=== PATIENT | female | born 1955 | race Caucasian/White ===

== ENCOUNTER 2024-11-23 15:28 | Inpatient (IN) | payer MEDICARE, OTHER, SELFPAY ==
[2024-11-23] VITALS (8 sets, daily range): BP systolic 109–144; BP diastolic 61–84; PULSE 95–123; RESP 18; TEMP 36.1–36.8; O2SAT 95–98; BMI 37.8; BMI 34.1
--- NOTE | 2024-11-23 19:21 | CT_ITS ---
PROCEDURE: CHEST WITH CONTRAST REASON FOR EXAM: Right breast wound. TECHNIQUE: Chest CT with intravenous contrast. COMPARISON: None. FINDINGS: Hardware: None. Lymph nodes: No mediastinal hilar or axillary lymphadenopathy. Heart and Vasculature: Normal heart size. No pericardial effusion. Thoracic aorta and pulmonary arteries are unremarkable. Lungs and Airways: The lungs are normally expanded and clear. Pleura: No pleural effusion. No pneumothorax. Upper Abdomen: Hypodense liver suggestive of steatosis. Right adrenal 9 mm indeterminate nodule. Bones: Bone windows are unremarkable. Right breast 13.6 x 16.5 x 17.[address]/Chest WITH Contrast IMPRESSION: Large right breast lesion which may represent a mass or hematoma in the setting of trauma. Correlate clinically. Correlate with breast imaging and clinical history. Right adrenal indeterminate 9 mm nodule. No follow-up recommended based on siz e. One or more dose reduction techniques were used (e.g., Automated exposure contr ol, adjustment of the mA and/or kV according to patient size, use of iterative reconstruction technique). Reading Location: [id number]
[2024-11-23 19:37] LABS: Absolute Lymphocyte Count 2.11 X10^3/uL (0.83-4.51); Absolute Neutrophil Count 65.4 X10^3/uL (2.0-7.7); Basophil# 0.32 X10^3/uL; Basophil% 0.4 % (0-1); Eosinophil# 0.12 X10^3/uL; Eosinophils% 0.2 % (0-5); Hemoglobin 7.7 g/dL (12.0-15.0); Lymphocyte # 2.11 X10^3/ul (0.83-4.51); Lymphocyte % 2.9 % (19-41); Mean Corp Hgb Conc 29.6 g/dL (32-36); Mean Corpuscular Hgb 26.7 pg (27.0-32.0); Mean Corpuscular Volume 90.3 fL (81-99); Mean Platelet Vol. 10.9 fl (6.2-12.0); Monocyte# 1.84 X10^3/uL; Monocyte% 2.5 % (0-10); NRBC Flagged by Analyzer 0.1 % (0-5); Neutrophil # 65.36 X10^3/uL (2.7-7.7); Neutrophil % 90.6 % (47-70); POSITIVE COUNT YES; POSITIVE DIFFERENTIAL YES; Platelet Count 436 K/mm3 (150-450); RBC Distribution Width CV 16.2 % (11.6-14.6); Red Blood Count 2.88 M/mm3 (4.2-5.4)
[2024-11-23 19:41] LABS: ALB/GLOB Ratio 0.4 RATIO (0.9-2.4); AST(SGOT) 19 U/L (15-37); Alanine Aminotransfer ALT/SGPT 12 U/L (13-56); Albumin, Serum 2.3 g/dL (3.2-5.0); Alkaline Phosphatase 265 U/L (45-117); Anion Gap 9 (5-15); BUN 17 mg/dL (7-18); BUN/Creat Ratio 17.5 RATIO (10-20); Calcium,Total 9.7 mg/dL (8.5-10.1); Chloride 104 mmol/L (98-107); Creatinine, Serum 0.97 mg/dL (0.55-1.02); EST Glomerular Filtration Rate 60 mL/min (>60); Est Glom Filt Rate - Afr Amer 73 mL/min (>60); Estimated Creatinine Clearance 75.82 ml/min; Globulin 5.8 g/dL (2.2-4.2); Glucose 101 mg/dL (74-106); Potassium 4.7 mmol/L (3.5-5.1); Protein, Total 8.1 g/dL (6.4-8.2); Sodium Level 136 mmol/L (136-145)
[2024-11-23 20:09] LABS: Differential Indicated SCAN CRITERIA MET; White Blood Count 72.2 K/mm3 (4.4-11.0)
[2024-11-23 20:10] LABS: Differential Comment SCANNED; Hypochromasia 2+; Platelet Estimate ADEQUATE (ADEQ)
--- NOTE | 2024-11-23 21:05 | EX.ED.DYSGE1 ---
HPI History of Present Illness Chief Complaint: Wound Narrative Narrative: 69-year-old female past medical history of hearing impairment, but can read lips, presents with right breast pain, swelling, and bleeding that she states she has had for 4 weeks. Her states it may be longer than that. She endorses a generalized weakness but states that over the last 4 weeks, she has what she calls a third breast. Her right breast is firm and she has noticed bleeding coming from it. She tries to apply Band-Aids, but has continued bleeding intermittently. She thinks that she is anemic and wanted to go to urgent care to get iron pills. She has not been to a primary care provider in years. She presents mainly because of the bleeding from her right breast. PFSH PFSH Medical History no medical history Allergy/AdvReac Type Severity Reaction Status Date / Time Penicillins (PCN) Allergy Mild Rash Verified 11/23/24 15:37 Family History Sister Breast cancer Surgical History no surgical history Social History Smoking Status: Never smoker ROS ROS ED ROS Narrative No fevers or chills, no nausea or vomiting, chief complaint is bleeding from right breast and firmness of right breast for 4 weeks. EXAM Physical Exam Narrative Exam Narrative: Afebrile. Vital signs noted. Nontoxic-appearing. Cardiovascular examination reveals initial tachycardia with a regular rhythm. Lungs clear to auscultation bilaterally. Abdomen soft and nontender with normoactive bowel sounds. Neurological examination nonfocal and not lateralizing. Chaperoned examination of the right breast shows diffuse firmness with necrotic tissue diffusely with areas of of epidermal skin sloughing, which creates bleeding. No noted purulent drainage. Const Vital Signs: 11/23/24 15:29 11/23/24 18:30 11/23/24 18:31 Temperature 96.9 F L 98.3 F Temperature Source Temporal Temporal Pulse Rate 123 H 109 H Respiratory Rate 18 18 Blood Pressure 109/70 144/61 H 144/61 H Blood Pressure Mean 83 88 88 Pulse Ox 96 95 Oxygen Delivery Method Room Air Room Air 11/23/24 20:00 11/23/24 21:00 11/23/24 22:00 Temperature 97.6 F L 97.6 F L 97.6 F L Temperature Source Oral Oral Oral Pulse Rate 107 H 99 102 H Respiratory Rate 18 18 18 Blood Pressure 142/84 H 133/77 H 141/67 H Blood Pressure Mean 103 95 91 Pulse Ox 95 95 95 Oxygen Delivery Method Room Air Room Air Room Air MDM MDM MDM Narrative Medical decision making narrative: Initially without of his utilization differential diagnosis did include breast hematoma versus breast mass versus cellulitis versus broken blood vessel. I have very high suspicion for inflammatory breast carcinoma. The RN and I had a lengthy talk with both the patient and her . With very high suspicion of breast carcinoma/breast mass, I do feel that she would benefit from transfer to a tertiary care center. She is agreeable to go to [facility]. I discussed the patient with the transfer line and we will obtain basic laboratory work. Initially, did not want imaging, but and a call back as there are currently no beds available and she will most likely need to be placed on a waiting list, CT of the chest will be obtained with IV contrast. I reviewed her laboratory work and she has a leukocytosis of 72.2 with hemoglobin 7.7. I do not feel she requires blood transfusion. Platelet count normal at 436. Her CMP is grossly unremarkable except for alk phos 265 and ALT 12 which I think is nonspecific. I reviewed the radiology report of the CT of the chest which shows a large right sided breast mass versus hematoma. I do favor mass given her elevated white count. I discussed the patient with the [facility] Transfer line, and currently there are no beds available. She will be placed on the waiting list after discussion with their hospitalist. She has been accepted by Dr. Adams at [facility], and placed on the waiting list. Additionally, they requested that COVID, influenza, and RSV swab be obtained prior to transfer. Afterwards, patient will be discussed with the hospitalist here for admission. Patient is in stable condition. History & Record Review Discussion w/independent historian: Patient and Family Lab Data Attestation: I reviewed the patient's lab results. Labs: Laboratory Results - last 24 hr 11/23/24 19:10 WBC 72.2 H* RBC 2.88 L Hgb 7.7 L Hct 26.0 L MCV 90.3 MCH 26.7 L MCHC 29.6 L RDW Std Deviation 53.0 H RDW Coeff of Jessica 16.2 H Plt Count 436 MPV 10.9 Immature Gran % (Auto) 3.400 H Neut % (Auto) 90.6 H Lymph % (Auto) 2.9 L [place] % (Auto) 2.5 Eos % (Auto) 0.2 Baso % (Auto) 0.4 Absolute Neuts (auto) 65.4 H Absolute Lymphs (auto) 2.11 Nucleated RBC % 0.1 Differential Comment SCANNED Diff Path Review May foll Platelet Estimate ADEQUATE Hypochromasia 2+ Sodium 136 Potassium 4.7 Chloride 104 Carbon Dioxide 23.0 Anion Gap 9 BUN 17 Creatinine 0.97 Estim Creat Clear Calc 75.82 Est GFR (MDRD) Af Amer 73 Est GFR (MDRD) Non-Af 60 BUN/Creatinine Ratio 17.5 Glucose 101 Calcium 9.7 Total Bilirubin 0.30 AST 19 ALT 12 L Alkaline Phosphatase 265 H Total Protein 8.1 Albumin 2.3 L Globulin 5.8 H Albumin/Globulin Ratio 0.4 L Radiography Diagnostic Testing: Clinical Impression(s) from Imaging Studies Chest CT 11/23/24 19:21 IMPRESSION: Large right breast lesion which may represent a mass or hematoma in the setting of trauma. Correlate clinically. Correlate with breast imaging and clinical history. Right adrenal indeterminate 9 mm nodule. No follow-up recommended based on size. One or more dose reduction techniques were used (e.g., Automated exposure control, adjustment of the mA and/or kV according to patient size, use of iterative reconstruction technique). 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
--- NOTE | 2024-11-23 21:50 | CM.ED ---
Social Work SW met with patient and her . Patient presented to ED due to mass on her breast that has been bleeding. Patient stated that she has not been to a doctor since she had her daughter 50 years ago. She stated she has not had good experiences, that because of her hearing deficit she feels that people do not talk directly with her and she feels that she is not told all the necessary information. Patient states she is fearful of being admitted but understands it is the right decision. Patient was tearful during parts of conversation. Emotional support provided. Lisa Burgess, TRANSPORTATION CONSULTANT, FILTERS ASSEMBLER
--- NOTE | 2024-11-23 22:59 | PCM.HP.STD ---
[facility] - General General Date of Admission: 11/23/24 Date of Service: 11/23/24 Chief Complaint: R breast mass, bleeding, fatigue and malaise. 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 She does admit to history of at least 2 to 3 weeks of night sweats, decreased appetite and occasional nausea and emesis concurrently. She denies any specific fevers or chills. 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 ED physician discussed case with patient and her with high suspicion for possibly inflammatory breast carcinoma with recommended tertiary transfer at that time amenable to [facility] Transfer. ED physician arrange transfer to [facility] Excepted by Dr. Adams. Unfortunately transfer line noted currently there is a waiting list therefore ED requested admission temporarily to [facility] pending transfer. [facility] Medical History (Updated 11/24/24 @ 01:[address] Mirella Quevedo MD) CKD (chronic kidney disease) Obesity Congenital hearing disorder Medical History no medical history Home Medications ?Medication ?Instructions ?Recorded ?Last Taken ?Type NK 11/23/24 Unknown History Allergy/AdvReac Type Severity Reaction Status Date / Time Penicillins (PCN) Allergy Mild Rash Verified 11/23/24 15:37 Family History (Updated 11/24/24 @ 01:[address] Mirella Quevedo MD) Sister Breast cancer Mother Heart disease Hypertension Father Congenital hearing disorder Surgical History (Updated 11/24/24 @ 01:[address] Mirella Quevedo MD) No history of previous surgery Surgical History no surgical history Social History (Updated 11/24/24 @ 01:[address] Mirella Quevedo MD) household members: spouse Smoking Status: Never smoker alcohol intake: current alcohol intake frequency: holidays/special occasions only Alcohol type: beer substance use type: does not use ROS ROS Narrative Admission Review of Systems: CONSTITUTIONAL: No weight loss, fever, chills, + weakness or fatigue, night sweats, decreased appetite. HEENT: Eyes: No visual loss, blurred vision, double vision or yellow sclerae. Ears, Nose, Throat: No hearing loss, sneezing, congestion, runny nose or sore throat. SKIN: No rash or itching except significant + right breast enlargement, sloughing, eschar, bleeding regions as well as occasional staged ecchymoses. CARDIOVASCULAR: No chest pain, chest pressure or chest discomfort, palpitations, edema, orthopnea, syncopal events. RESPIRATORY: + Cough primarily when she is laying down. No shortness of breath, wheezing, hemoptysis. GASTROINTESTINAL: + Decreased appetite, occasional nausea and emesis. No diarrhea, abdominal pain, melena, BRBPR. GENITOURINARY: No dysuria, frequency, urgency or retention. NEUROLOGICAL: No headache, dizziness, syncope, paralysis, ataxia, numbness or tingling in the extremities, focal weakness, change in bowel or bladder control, seizure. MUSCULOSKELETAL: + muscle, back pain, joint pain or stiffness. HEMATOLOGIC: + Current evidence of anemia, easy bleeding is noted. LYMPHATICS: No enlarged nodes. No history of splenectomy. PSYCHIATRIC: No history of depression or anxiety. ENDOCRINOLOGIC: + History of night sweats. No cold or heat intolerance. No polyuria or polydipsia. ALLERGIES: No history of asthma, hives, eczema or rhinitis. Vital Signs Vital Signs Vital Signs: 11/23/24 15:29 11/23/24 18:30 11/23/24 18:31 Temperature 96.9 F L 98.3 F Temperature Source Temporal Temporal Pulse Rate 123 H 109 H Respiratory Rate 18 18 Blood Pressure 109/70 144/61 H 144/61 H Blood Pressure Mean 83 88 88 Pulse Ox 96 95 Oxygen Delivery Method Room Air Room Air 11/23/24 20:00 11/23/24 21:00 11/23/24 22:00 Temperature 97.6 F L 97.6 F L 97.6 F L Temperature Source Oral Oral Oral Pulse Rate 107 H 99 102 H Respiratory Rate 18 18 18 Blood Pressure 142/84 H 133/77 H 141/67 H Blood Pressure Mean 103 95 91 Pulse Ox 95 95 95 Oxygen Delivery Method Room Air Room Air Room Air Weight Weight: 264 lb Body Mass Index (BMI) 37.8 Physical Exam Narrative Physical Examination: General: Awake, alert, oriented x 3 and cooperative, seated upright in the ED bed, no acute distress, despite discussions does not seem to appreciate this severity of her right breast appearance and high suspicion for cancer. Skin: Normal color, normal turgor, no icterus, no cyanosis except noted right breast significant diffuse elevated firm region with eschars and necrotic tissue with skin sloughing and occasional seeping bleeding regions. HEENT: AT/NC, EOMI, PERRLA, mildly dry MM, no carotid bruits or JVD noted. Lungs: Diminished, greater bases, appropriate effort, no rales, ronchi or wheezing. Heart: Mildly tachycardic with regular rhythm; no gallop, rub audible. Abdomen: Soft, obese, NTTP, ND, normal BS, no appreciated HSM. Extremities: No cyanosis, no clubbing, bilateral pedal to ankle not markedly pitting edema. Neurological: Patient awake, alert, oriented as noted, cognitive function intact; pupils equally reactive to light and accommodation, cranial nerves II-XII grossly normal, moving all 4 extremities, no focal deficits, strength moderately globally decreased. Psychiatric: Affect appears normal despite discussions, no acute evidence of depressive or anxiety feelings, reaction and appearance seems more to just believe the potential of cancer. Results Lab / Micro Data 11/23/24 19:10 11/23/24 19:10 Labs: Laboratory Results - last 24 hr 11/23/24 19:10: WBC 72.2 H*, RBC 2.88 L, Hgb 7.7 L, Hct 26.0 L, MCV 90.3, MCH 26.7 L, MCHC 29.6 L, RDW Std Deviation 53.0 H, RDW Coeff of Jessica 16.2 H, Plt Count 436, MPV 10.9, Immature Gran % (Auto) 3.400 H, Neut % (Auto) 90.6 H, Lymph % (Auto) 2.9 L, [place] % (Auto) 2.5, Eos % (Auto) 0.2, Baso % (Auto) 0.4, Absolute Neuts (auto) 65.4 H, Absolute Lymphs (auto) 2.11, Nucleated RBC % 0.1, Differential Comment SCANNED, Diff Path Review May foll, Platelet Estimate ADEQUATE, Hypochromasia 2+, Sodium 136, Potassium 4.7, Chloride 104, Carbon Dioxide 23.0, Anion Gap 9, BUN 17, Creatinine 0.97, Estim Creat Clear Calc 75.82, Est GFR (MDRD) Af Amer 73, Est GFR (MDRD) Non-Af 60, BUN/Creatinine Ratio 17.5, Glucose 101, Calcium 9.7, Total Bilirubin 0.30, AST 19, ALT 12 L, Alkaline Phosphatase 265 H, Total Protein 8.1, Albumin 2.3 L, Globulin 5.8 H, Albumin/Globulin Ratio 0.4 L Micro: Microbiology 11/23/24 22:13 Mucosa - Nose SARS-CoV-2, Influenza & RSV (PCR) - Final Imaging Radiology Impression Chest CT 11/23/24 19:21 IMPRESSION: Large right breast lesion which may represent a mass or hematoma in the setting of trauma. Correlate clinically. Correlate with breast imaging and clinical history. Right adrenal indeterminate 9 mm nodule. No follow-up recommended based on size. One or more dose reduction techniques were used (e.g., Automated exposure control, adjustment of the mA and/or kV according to patient size, use of iterative reconstruction technique). 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 #1. Right Breast Mass with concern for possible inflammatory breast carcinoma with associated acute blood loss anemia with bleeding from the breast with sloughing skin/eschar and leukocytosis: Per ED request given unfortunately no available beds at tertiary facility although patient has been accepted will temporarily bring into [facility] to more closely follow, will maintain on MedSurg, monitor for any recurrent bleeding and low threshold to placed on compression dressing if necessary, wound RN will be consulted, if necessary may also consider involving surgery as well as radiation oncology as likely this will be necessary to assist with bleeding but at this point the plan is for her to be transferred thus will hold on immediately involving the services, will trend CBC, procalcitonin requested given leukocytosis although patient has had no recent fevers or chills and certainly could be elevated in the setting of cancer concurrently, to be cautious will defer chemoprophylaxis. If the procalcitonin is elevated will immediately add broad-spectrum antibiotic therapy in case of potentially an infected hematoma although more suspicious again for inflammatory breast carcinoma. #2. Normocytic anemia felt secondary as noted #1 to acute blood loss anemia from the right breast: Admission CBC with hemoglobin 7.7, MCV 90.3, will obtain iron panel, ferritin and trend CBC #3. Elevated BP without hypertensive diagnosis: Patient upon evaluation with elevated BP above goal with no previous history, will continue to monitor, as needed IV hydralazine. #4. Obesity: Weight loss and lifestyle changes encouraged. #5. Possible CKD stage II versus III, unclear subtype per GFR trending: Patient denies any medical history however with her labs her BUN/creatinine 17/0.97 with a GFR of 16 with no comparison labs thus uncertain if maybe patient is stage II versus stage III, will repeat CMP in the a.m. to further elucidate. #6. DVT prophylaxis: SCDs. #7. CODE status: Patient HCPOA and living will not in place but she notes her who is present would be her medical decision maker if necessary. Discussed CODE status at length including difference between FULL code, DNR-CCA and DNR-CC status. Following discussions about the differences in these status, requested DNR CCA with intubation allowance following several examples and we discussions. Advanced Care Planning Face to Face Time: 16 minutes. Charges/Coding Visit Charges Inpatient E&M: 07563 Init Hosp L3 Procedures Hospitalists Procedures: 81317 Advncd Care Plan 30 Min
[2024-11-23 23:35] LABS: Magnesium 2.3 mg/dL (1.6-2.6); Phosphorus 4.5 mg/dL (2.5-4.9)
[2024-11-24] VITALS (7 sets, daily range): BP systolic 114–142; BP diastolic 61–70; PULSE 81–102; RESP 17–19; TEMP 36.6–36.8; O2SAT 93–97; BMI 34.0
[2024-11-24 00:18] LABS: Ferritin 941 ng/mL (8-252); Iron 17 ug/dL (50-170); Iron Binding Capacity,Total 135 ug/dL (250-450); PERCENT IRON SATURATION 12.6 % (15.0-55.0)
[2024-11-24] MEDS: 0.9% Normal Saline (1000mL) 1,000 ML 999 ML IV (01:08)
[2024-11-24 01:09] LABS: Procalcitonin 1.07 ng/mL (0.00-0.09)
[2024-11-24] MEDS: 0.9% Saline Lock 10 ML Syringe IV (01:09)
[2024-11-24] MEDS: Acetaminophen 325 MG Tablet 650 MG PO (01:10)
[2024-11-24] MEDS: oxyCODONE 5 MG Tablet PO ×3 (01:11→16:11)
[2024-11-24] MEDS: 0.9% Normal Saline (1000mL) 1,000 ML 100 ML IV (02:31)
--- NOTE | 2024-11-24 02:58 | ED.RN ---
Addendum entered by Jossy Parrish 11/24/24 03:02: Pictures of pts wound added to chart per request of Dr. Sunshine. Consent signed by pt and MADDISON Mondragon. Original Note:
[2024-11-24] MEDS: levoFLOXacin IV 750 MG/150 ML BAG 100 MG IV (04:16)
[2024-11-24 04:48] LABS: Absolute Lymphocyte Count 1.93 X10^3/uL (0.83-4.51); Absolute Neutrophil Count 48.3 X10^3/uL (2.0-7.7); Basophil# 0.26 X10^3/uL; Basophil% 0.5 % (0-1); Eosinophils% 0.6 % (0-5); Hematocrit 23.9 % (37-47); Hemoglobin 7.2 g/dL (12.0-15.0); Lymphocyte # 1.93 X10^3/ul (0.83-4.51); Lymphocyte % 3.6 % (19-41); Mean Corp Hgb Conc 30.1 g/dL (32-36); Mean Corpuscular Hgb 27.1 pg (27.0-32.0); Mean Corpuscular Volume 89.8 fL (81-99); Mean Platelet Vol. 10.1 fl (6.2-12.0); Monocyte# 1.48 X10^3/uL; Monocyte% 2.7 % (0-10); NRBC Flagged by Analyzer 0.1 % (0-5); Neutrophil # 48.28 X10^3/uL (2.7-7.7); Neutrophil % 88.8 % (47-70); POSITIVE COUNT YES; POSITIVE DIFFERENTIAL YES; Platelet Count 420 K/mm3 (150-450); RBC Distribution Width CV 16.1 % (11.6-14.6); RBC Distribution Width SD 52.8 fl (35.1-43.9); Red Blood Count 2.66 M/mm3 (4.2-5.4)
[2024-11-24 04:57] LABS: White Blood Count 54.3 K/mm3 (4.4-11.0)
[2024-11-24 04:58] LABS: Differential Indicated SCAN CRITERIA MET
[2024-11-24 05:13] LABS: ALB/GLOB Ratio 0.4 RATIO (0.9-2.4); AST(SGOT) 13 U/L (15-37); Alanine Aminotransfer ALT/SGPT 10 U/L (13-56); Alkaline Phosphatase 212 U/L (45-117); Anion Gap 6 (5-15); BUN 15 mg/dL (7-18); Calcium,Total 9.1 mg/dL (8.5-10.1); Chloride 109 mmol/L (98-107); Creatinine, Serum 0.79 mg/dL (0.55-1.02); EST Glomerular Filtration Rate 76 mL/min (>60); Est Glom Filt Rate - Afr Amer 93 mL/min (>60); Estimated Creatinine Clearance 87.06 ml/min; Globulin 4.9 g/dL (2.2-4.2); Glucose 100 mg/dL (74-106); Potassium 4.3 mmol/L (3.5-5.1); Protein, Total 6.9 g/dL (6.4-8.2); Sodium Level 140 mmol/L (136-145)
[2024-11-24] MEDS: Vancomycin HCl 2,000 MG in 0.9% Normal Saline (500mL Bag) 500 ML 250 MG IV (06:12)
--- NOTE | 2024-11-24 06:18 | PCM.RX.CS ---
Consult Antibiotic Management Pharmacy has been consulted to manage selected antibiotic: Vancomycin Type of Intervention Type of Consult: New start Labs Labs: Sodium 140 mmol/L (136-145) 11/24/24 04:30 Potassium 4.3 mmol/L (3.5-5.1) 11/24/24 04:30 Chloride 109 mmol/L (98-107) H 11/24/24 04:30 Carbon Dioxide 25.0 mmol/L (21.0-32.0) 11/24/24 04:30 Anion Gap 6 (5-15) 11/24/24 04:30 BUN 15 mg/dL (7-18) 11/24/24 04:30 Creatinine 0.79 mg/dL (0.55-1.02) 11/24/24 04:30 Est GFR (MDRD) Af Amer 93 mL/min (>60) 11/24/24 04:30 Est GFR (MDRD) Non-Af 76 mL/min (>60) 11/24/24 04:30 BUN/Creatinine Ratio 19.0 RATIO (10-20) 11/24/24 04:30 Glucose 100 mg/dL (74-106) 11/24/24 04:30 Microbiology Microbiology: Microbiology 11/23/24 22:13 Mucosa - Nose SARS-CoV-2, Influenza & RSV (PCR) - Final Dosing Weight Weight used for dosin.95 kg Estimated Creatinine Clearance Estimated Creatinine Clearance: 75.82 Goal Trough Goal Trough: 15-20 mcg/mL Pharmacy Plan for Drug Dosing Pharmacy Plan for Drug Dosing: Pharmacy Service will continue to monitor and adjust dosing as required. 2000MG LOADING DOSE GIVEN 11/24 @ 0612. START 1500MG Q12H AND DRAW TROUGH PRIOR TO 4TH DOSE Follow-Up Labs Follow-Up Labs: Trough: Vancomycin Date/Time Labs Ordered Labs to be done on [date and time ordered]: 11/25 @ 8143
[2024-11-24 07:29] LABS: Anisocytosis 1+
--- NOTE | 2024-11-24 09:08 | WOUNDNOTE ---
wound photo: right breast
--- NOTE | 2024-11-24 09:09 | WOUNDNOTE ---
wound photo: right breast
[2024-11-24 14:42] LABS: Pathologist Review Reviewed
--- NOTE | 2024-11-24 16:26 | PN.HOSP_ITS ---
Reason for Visit Reason for Visit: Diagnoses Unspecified lump in unspecified breast (11/23/24) Subjective Subjective Saw patient at bedside this morning. Patient is very hard of hearing, used geriatric physician ronal on phone for assistance with conversation. She was mildly fatigued appearing but otherwise sitting up comfortably in bed and in no acute distress. She denied any fevers or chills. No other new concerns morning. Objective Data Objective Data Vital Signs: Vital Signs Temp Pulse Resp BP Pulse Ox O2 Del Method 97.9 F 93 19 H 141/62 H 96 Room Air 11/24/24 15:56 11/24/24 15:56 11/24/24 15:56 11/24/24 15:56 11/24/24 15:56 11/24/24 15:56 Oxygen Delivery Method Room Air Weight: 107.955 kg Body Mass Index (BMI) 34.0 Intake & Output: Intake and Output for Last 24 Hours 11/22/24 11/23/24 11/24/24 23:59 23:59 23:59 Intake Total 1865 / 1865 Balance 1865 / 1865 Lab / Micro Data 11/24/24 04:30 11/24/24 04:30 Labs: Laboratory Results - last 24 hr 11/23/24 19:10: WBC 72.2 H*, RBC 2.88 L, Hgb 7.7 L, Hct 26.0 L, MCV 90.3, MCH 26.7 L, MCHC 29.6 L, RDW Std Deviation 53.0 H, RDW Coeff of Jessica 16.2 H, Plt Count 436, MPV 10.9, Immature Gran % (Auto) 3.400 H, Neut % (Auto) 90.6 H, Lymph % (Auto) 2.9 L, [place] % (Auto) 2.5, Eos % (Auto) 0.2, Baso % (Auto) 0.4, Absolute Neuts (auto) 65.4 H, Absolute Lymphs (auto) 2.11, Nucleated RBC % 0.1, Differential Comment SCANNED, Diff Path Review Reviewed, Platelet Estimate ADEQUATE, Hypochromasia 2+, Sodium 136, Potassium 4.7, Chloride 104, Carbon Dioxide 23.0, Anion Gap 9, BUN 17, Creatinine 0.97, Estim Creat Clear Calc 75.82, Est GFR (MDRD) Af Amer 73, Est GFR (MDRD) Non-Af 60, BUN/Creatinine Ratio 17.5, Glucose 101, Calcium 9.7, Phosphorus 4.5, Magnesium 2.3, Iron 17 L, TIBC 135 L, Iron Saturation 12.6 L, Ferritin 941 H, Total Bilirubin 0.30, AST 19, ALT 12 L, Alkaline Phosphatase 265 H, Total Protein 8.1, Albumin 2.3 L, Globulin 5.8 H, Albumin/Globulin Ratio 0.4 L 11/24/24 00:28: Procalcitonin 1.07 H 11/24/24 04:30: WBC 54.3 H*, RBC 2.66 L, Hgb 7.2 L, Hct 23.9 L, MCV 89.8, MCH 27.1, MCHC 30.1 L, RDW Std Deviation 52.8 H, RDW Coeff of Jessica 16.1 H, Plt Count 420, MPV 10.1, Immature Gran % (Auto) 3.800 H, Neut % (Auto) 88.8 H, Lymph % (Auto) 3.6 L, [place] % (Auto) 2.7, Eos % (Auto) 0.6, Baso % (Auto) 0.5, Absolute Neuts (auto) 48.3 H, Absolute Lymphs (auto) 1.93, Nucleated RBC % 0.1, Diff Path Review May foll, Anisocytosis 1+, Sodium 140, Potassium 4.3, Chloride 109 H, Carbon Dioxide 25.0, Anion Gap 6, BUN 15, Creatinine 0.79, Estim Creat Clear Calc 87.06, Est GFR (MDRD) Af Amer 93, Est GFR (MDRD) Non-Af 76, BUN/Creatinine Ratio 19.0, Glucose 100, Calcium 9.1, Total Bilirubin 0.30, AST 13 L, ALT 10 L, Alkaline Phosphatase 212 H, Total Protein 6.9, Albumin 2.0 L, Globulin 4.9 H, A lbumin/Globulin Ratio 0.4 L Micro: Microbiology 11/23/24 22:13 Mucosa - Nose SARS-CoV-2, Influenza & RSV (PCR) - Final Radiography Diagnostic Testing: Radiology Impression Chest CT 11/23/24 19:21 IMPRESSION: Large right breast lesion which may represent a mass or hematoma in the setting of trauma. Correlate clinically. Correlate with breast imaging and clinical history. Right adrenal indeterminate 9 mm nodule. No follow-up recommended based on size. One or more dose reduction techniques were used (e.g., Automated exposure control, adjustment of the mA and/or kV according to patient size, use of iterative reconstruction technique). Reading Location: [facility] Physical Exam Const alert, oriented x3 and no apparent distress Constitutional Narrative: Elderly female, very hard of hearing, class I obesity, mildly fatigued appearing, otherwise sitting back comfortably in bed, in no acute distress. General Appearance: cooperative and comfortable HEENT normocephalic, head/scalp atraumatic, nasal mucous membranes and turbinates normal and moist oral mucous membranes Eyes PERRL, EOMs intact bilaterally and conjunctivae normal Neck full ROM Chest Chest Narrative: Large right firm breast mass with areas of eschar and necrotic tissue noted. Resp normal respiratory effort, normal air movement, no use of accessory muscles and clear to auscultation bilaterally Cardio regular rate, regular rhythm, no murmurs and peripheral pulses 2+ throughout GI normal to inspection, nondistended, normoactive bowel sounds, soft to palpation, non-tender and non-distended Back/Spine normal ROM Extremity normal to inspection, full ROM and no pedal edema Skin no rashes or lesions noted Psych mental status grossly normal Assessment & Plan Assessment/Plan (1) Large mass of breast: (2) Leukocytosis: (3) Anemia: PLAN: Plan Patient is a 69-year-old female who presented [facility] ED on 11/23/2024 with right breast mass with pain. 1. Large right breast mass with concern for inflammatory breast carcinoma, concern for cellulitis of breast mass ? CT chest on admit showed large right breast lesion that is 13.6 x 16.5 x 17.9 cm concerning for mass possibly due to inflammatory breast carcinoma. Severely elevated WBC count of 72.2 with neutrophil predominance noted. Procalcitonin 1.07. Treating with IV Levaquin for now. Patient accepted for transfer to [facility], awaiting bed placement. 2. Acute on chronic anemia ? Hemoglobin 7.7 on admit, baseline unclear but patient does report history of anemia. Iron studies consistent with anemia of chronic disease. Likely some degree of blood loss anemia secondary to intermittent bleeding from breast mass. Hemoglobin 7.2 on hospital day 2. Continue to monitor CBC daily and transfuse for hemoglobin less than 7. 3. Class I obesity ? BMI 34 on admit. Complicates hospital course, care and prognosis. 4. Congenital hearing impairment ? Patient is able to read lips and also uses phone ronal to help with translation during encounters. DVT prophylaxis: SCDs CODE STATUS: DNR CCA, okay to intubate Expected disposition: Transfer to [facility] Total clinical time spent by myself addressing the patient's medical issues, reviewing all the data, and collaborating with patient's care team: 35 minutes. Charges/Coding Visit Charges Inpatient E&M: 63373 Subs Hosp L2
[2024-11-24] MEDS: 0.9% Normal Saline (100mL Bag) 100 ML 15 ML IV (18:27)
[2024-11-24] MEDS: Vancomycin HCl 1,500 MG in 0.9% Normal Saline (500mL Bag) 500 ML 250 MG IV (18:27)
[2024-11-25] VITALS (9 sets, daily range): BP systolic 122–151; BP diastolic 54–79; PULSE 91–109; RESP 18–20; TEMP 36.4–36.8; O2SAT 92–96; BMI 34.4
[2024-11-25] MEDS: 0.9% Normal Saline (100mL Bag) 100 ML 15 ML IV (04:24)
[2024-11-25] MEDS: Vancomycin HCl 1,500 MG in 0.9% Normal Saline (500mL Bag) 500 ML 200 MG IV (05:28)
[2024-11-25 07:04] LABS: Hematocrit 23.1 % (37-47); Hemoglobin 6.7 g/dL (12.0-15.0); Mean Corpuscular Hgb 26.4 pg (27.0-32.0); Mean Corpuscular Volume 90.9 fL (81-99); Mean Platelet Vol. 9.8 fl (6.2-12.0); POSITIVE COUNT YES; Platelet Count 403 K/mm3 (150-450); RBC Distribution Width CV 16.3 % (11.6-14.6); RBC Distribution Width SD 53.6 fl (35.1-43.9); Red Blood Count 2.54 M/mm3 (4.2-5.4)
[2024-11-25 07:17] LABS: Scan Indicated on CBC? Y/N YES- FLAGS NOTED; White Blood Count 61.3 K/mm3 (4.4-11.0)
--- NOTE | 2024-11-25 09:26 | NURSING ---
This RN talked to pt about getting a blood transfusion as ordered by her Hospitalist Doctor today. Pt educated on reason and importance and still wants to wait and talk with the doctor. Isn't there something else they can give me. I want to wait and talk with the doctor before I decide. Dr. Orosco texted and aware.
[2024-11-25] MEDS: levoFLOXacin IV 750 MG/150 ML BAG 100 MG IV (10:30)
[2024-11-25] MEDS: Senna/Docusate Sodium 1 Tablet PO (10:37)
--- NOTE | 2024-11-25 11:27 | WOUNDNOTE ---
Dressing was changed by MADDISON Mayberry this am.
[2024-11-25 13:44] LABS: Pathologist Review Reviewed
--- NOTE | 2024-11-25 14:47 | PN.HOSP_ITS ---
Reason for Visit Reason for Visit: Diagnoses Anemia, unspecified (11/23/24) Elevated white blood cell count, unspecified (11/23/24) Unspecified lump in unspecified breast (11/23/24) Subjective Subjective Saw patient at bedside this morning. Patient appeared similar to yesterday. Remained mildly fatigued and was stating that she continued to feel very tired and weak. Nursing staff had noted that patient was hesitant to have blood transfusion done. On discussion with her, she had some concern about a reaction to a blood transfusion but after further discussion she was amenable to receiving a unit of blood today. No other new concerns at this time. Objective Data Objective Data Vital Signs: Vital Signs Temp Pulse Resp BP Pulse Ox O2 Del Method 97.6 F L 100 18 151/73 H 95 Room Air 11/25/24 08:00 11/25/24 08:00 11/25/24 08:00 11/25/24 08:00 11/25/24 08:24 11/25/24 11:00 Oxygen Delivery Method Room Air Weight: 109 kg Body Mass Index (BMI) 34.4 Intake & Output: Intake and Output for Last 24 Hours 11/23/24 11/24/24 11/25/24 23:59 23:59 23:59 Intake Total 3460.00 / 3460.00 796 / 796 Balance 3460.00 / 3460.00 796 / 796 Lab / Micro Data 11/25/24 06:42 11/24/24 04:30 Labs: Laboratory Results - last 24 hr 11/24/24 04:30: Diff Path Review Reviewed 11/25/24 06:42: WBC 61.3 H*, RBC 2.54 L, Hgb 6.7 L, Hct 23.1 L, MCV 90.9, MCH 26.4 L, MCHC 29.0 L, RDW Std Deviation 53.6 H, RDW Coeff of Jessica 16.3 H, Plt Count 403, MPV 9.8, Differential Comment COMMENT, Diff Path Review February11/25/24 07:48: Blood Type A POSITIVE, Antibody Screen NEGATIVE, Crossmatch See Detail Micro: Microbiology 11/23/24 22:13 Mucosa - Nose SARS-CoV-2, Influenza & RSV (PCR) - Final Physical Exam Const alert, oriented x3 and no apparent distress Constitutional Narrative: Elderly female, very hard of hearing, class I obesity, mildly fatigued appearing, otherwise sitting back comfortably in bed, in no acute distress. Stable. General Appearance: cooperative and comfortable HEENT normocephalic, head/scalp atraumatic, nasal mucous membranes and turbinates normal and moist oral mucous membranes Eyes PERRL, EOMs intact bilaterally and conjunctivae normal Neck full ROM Chest Chest Narrative: Large right firm breast mass with areas of eschar and necrotic tissue noted. Stable. Resp normal respiratory effort, normal air movement, no use of accessory muscles and clear to auscultation bilaterally Cardio regular rate, regular rhythm, no murmurs and peripheral pulses 2+ throughout GI normal to inspection, nondistended, normoactive bowel sounds, soft to palpation, non-tender and non-distended Back/Spine normal ROM Extremity normal to inspection, full ROM and no pedal edema Skin no rashes or lesions noted Psych mental status grossly normal Assessment & Plan Assessment/Plan (1) Large mass of breast: (2) Leukocytosis: (3) Anemia: PLAN: Plan Patient is a 69-year-old female who presented [facility] ED on 11/23/2024 with right breast mass with pain. 1. Large right breast mass with concern for inflammatory breast carcinoma, concern for cellulitis of breast mass ? CT chest on admit showed large right breast lesion that is 13.6 x 16.5 x 17.9 cm concerning for mass possibly due to inflammatory breast carcinoma. Severely elevated WBC count of 72.2 with neutrophil predominance noted. Procalcitonin 1.07. Treating with IV vancomycin and Levaquin for now. WBC count improving, continue to monitor daily. Patient accepted for transfer to [facility], awaiting bed placement. 2. Acute on chronic anemia ? Hemoglobin 7.7 on admit, baseline unclear but patient does report history of anemia. Iron studies consistent with anemia of chronic disease. Likely some degree of blood loss anemia secondary to intermittent bleeding from breast mass. Hemoglobin down to 6.7 on hospital day 3, transfused 1 unit of blood. Continue to monitor CBC daily and transfuse for hemoglobin less than 7. 3. Class I obesity ? BMI 34 on admit. Complicates hospital course, care and prognosis. 4. Congenital hearing impairment ? Patient is able to read lips and also uses phone ronal to help with translation during encounters. DVT prophylaxis: SCDs CODE STATUS: DNR CCA, okay to intubate Expected disposition: Transfer to [facility] Total clinical time spent by myself addressing the patient's medical issues, reviewing all the data, and collaborating with patient's care team: 35 minutes. Charges/Coding Visit Charges Inpatient E&M: 08935 Subs Hosp L2
[2024-11-25] MEDS: oxyCODONE 5 MG Tablet PO (15:16)
[2024-11-25] MEDS: 0.9% Saline Lock 10 ML Syringe IV (17:42)
[2024-11-25 18:22] LABS: Vancomycin, Trough Level 18.2 ug/mL (5.0-15.0)
--- NOTE | 2024-11-25 18:30 | PHA.PHARE_ITS ---
Consult Antibiotic Management Pharmacy has been consulted to manage selected antibiotic: Vancomycin Type of Intervention Type of Consult: Follow-up Suspected Infection Suspected Infection: Skin/Soft tissue Labs Labs: Sodium 140 mmol/L (136-145) 11/24/24 04:30 Potassium 4.3 mmol/L (3.5-5.1) 11/24/24 04:30 Chloride 109 mmol/L (98-107) H 11/24/24 04:30 Carbon Dioxide 25.0 mmol/L (21.0-32.0) 11/24/24 04:30 Anion Gap 6 (5-15) 11/24/24 04:30 BUN 15 mg/dL (7-18) 11/24/24 04:30 Creatinine 0.79 mg/dL (0.55-1.02) 11/24/24 04:30 Est GFR (MDRD) Af Amer 93 mL/min (>60) 11/24/24 04:30 Est GFR (MDRD) Non-Af 76 mL/min (>60) 11/24/24 04:30 BUN/Creatinine Ratio 19.0 RATIO (10-20) 11/24/24 04:30 Glucose 100 mg/dL (74-106) 11/24/24 04:30 Vancomycin Trough 18.2 ug/mL (5.0-15.0) H 11/25/24 17:35 Microbiology Microbiology: Microbiology 11/23/24 22:13 Mucosa - Nose SARS-CoV-2, Influenza & RSV (PCR) - Final Pharmacy Plan for Drug Dosing Pharmacy Plan for Drug Dosing: VANCOMYCIN LEVEL RECEIVED Current Vancomycin Dose: 1500MG Q12 Number of Doses Received: 3 Vancomycin Level: 18.2 mg/dL Hours Since Last Dose: 12 Renal Function: SCr 0.79 mg/dL, CrCl 87 mL/min Renal Function Trend: stable Lab/Micro: none Vancomycin Plan/Comments: 12 hour trough is therapeutic at 18.2mg/dL (goal 15- 20). Will continue current dosing and get a trough in 2 days. Pending Level: 11/27/24 @ 0245 Pharmacy Service will continue to monitor and adjust dosing as required.
--- NOTE | 2024-11-25 20:10 | NURSING ---
1950 report called to Daisy WASHBURN at [facility]. Pt discharged to [facility] at
--- NOTE | 2024-11-25 21:48 | DCINST_ITS ---
Discharge Instructions Diet Discharge Diet: No restrictions DC O2, CPAP, BIPAP needs Home O2 Discharge instructions: No Dressing / Incision Discharge Activity: No Restrictions Follow Up Care Test Results: Test results from this visit will be discussed in further detail at your follow- up appointment, if applicable. Discharge Plan Admission Admit Date/Time: 11/23/24 23:00 Primary Reason for Your Visit: right breast mass Attending Provider: Joshua Orosco Primary Care Provider: Care Physician,No Primary Consulting Providers: Mirella Quevedo Discharge Orders/Prescriptions Prescriptions: No Action NK Referrals / Follow Up: Care Physician,No Primary [Primary Care Provider] - Disposition Disposition (needs filled in before D/C Order can be placed): Acute Care Hospital
--- NOTE | 2024-11-25 21:49 | DS.PCM_ITS ---
Providers Date of Admission: 11/23/24 Date of Discharge: 11/25/24 Primary Care Physician: Audrey Primary Care Phys Consultations 11/23/24 23:56 Consult: Onc/Wound/fur matcher Routine Comment: Reason for Consult:: R breast mass, poss CA, pending txf, sloughing Reason For Visit: BREAST MASS, ABLA Diagnosis Discharge Diagnosis (1) Large mass of breast: Status: Acute Code(s): N63.0 - Unspecified lump in unspecified breast (2) Leukocytosis: Status: Acute Code(s): D72.829 - Elevated white blood cell count, unspecified (3) Anemia: Status: Acute Code(s): D64.9 - Anemia, unspecified Medications at Discharge Home Medications NK 11/23/24 Hospital Course Operations None Procedures Blood transfusion and - (CT chest) Summary of Care Provided Minutes Spent on Discharge: 35 Hospital Course: Patient is a 69-year-old female who presented [facility] ED on 11/23/2024 with right breast mass with pain. Hospital course as noted below. Patient transferred to [facility] on 11/25 for further care. 1. Large right breast mass with concern for inflammatory breast carcinoma, concern for cellulitis of breast mass ? CT chest on admit showed large right breast lesion that is 13.6 x 16.5 x 17.9 cm concerning for mass possibly due to inflammatory breast carcinoma. Severely elevated WBC count of 72.2 with neutrophil predominance noted. Procalcitonin 1.07. Treating with IV vancomycin and Levaquin for now. WBC count improving, continue to monitor daily. Patient transferred to [facility] on 11/25 for further care. 2. Acute on chronic anemia ? Hemoglobin 7.7 on admit, baseline unclear but patient does report history of anemia. Iron studies consistent with anemia of chronic disease. Likely some degree of blood loss anemia secondary to intermittent bleeding from breast mass. Hemoglobin down to 6.7 on hospital day 3, transfused 1 unit of blood. Continue to monitor CBC daily and transfuse for hemoglobin less than 7. 3. Class I obesity ? BMI 34 on admit. Complicated hospital course, care and prognosis. 4. Congenital hearing impairment ? Patient is able to read lips and also uses phone ronal to help with translation during encounters. Total clinical time spent by myself addressing the patient's medical issues, reviewing all the data, and collaborating with patient's care team: 35 minutes. Physical Exam Const alert, oriented x3 and no apparent distress Constitutional Narrative: Elderly female, very hard of hearing, class I obesity, mildly fatigued appearing, otherwise sitting back comfortably in bed, in no acute distress. Stable. General Appearance: cooperative and comfortable HEENT normocephalic, head/scalp atraumatic, nasal mucous membranes and turbinates normal and moist oral mucous membranes Eyes PERRL, EOMs intact bilaterally and conjunctivae normal Neck full ROM Chest Chest Narrative: Large right firm breast mass with areas of eschar and necrotic tissue noted. Stable. Resp normal respiratory effort, normal air movement, no use of accessory muscles and clear to auscultation bilaterally Cardio regular rate, regular rhythm, no murmurs and peripheral pulses 2+ throughout GI normal to inspection, nondistended, normoactive bowel sounds, soft to palpation, non-tender and non-distended Back/Spine normal ROM Extremity normal to inspection, full ROM and no pedal edema Skin no rashes or lesions noted Psych mental status grossly normal Weight / BMI Weight Weight: 109 kg Body Mass Index (BMI) 34.4 ABG / Lab / Microbiology Data 11/25/24 06:42 11/24/24 04:30 Laboratory: Laboratory Results - last 24 hr 11/24/24 04:30: Diff Path Review Reviewed 11/25/24 06:42: WBC 61.3 H*, RBC 2.54 L, Hgb 6.7 L, Hct 23.1 L, MCV 90.9, MCH 26.4 L, MCHC 29.0 L, RDW Std Deviation 53.6 H, RDW Coeff of Jessica 16.3 H, Plt Count 403, MPV 9.8, Differential Comment COMMENT, Diff Path Review February11/25/24 07:48: Blood Type A POSITIVE, Antibody Screen NEGATIVE, Crossmatch See Detail 11/25/24 17:35: Vancomycin Trough 18.2 H Microbiology: Microbiology 11/23/24 22:13 Mucosa - Nose SARS-CoV-2, Influenza & RSV (PCR) - Final D/C Instructions Discharge Diet: No restrictions DC O2, CPAP, BIPAP Needs Home O2 Discharge instructions: No Meaningful Use Info Meaningful Use Meaningful Use Diagnoses (Choose all that apply): None applicable Ischemic Stroke Statin Dosing Therapy Reference: STATIN DOSE THERAPY REFERENCE: * Patients > 75 years receive moderate or high dose statin therapy. * Patients 75 years or YOUNGER should receive HIGH intensity statin dose unless contraindicated. You will be required to document reason for non-treatment if statin daily dose does not meet guidelines. HIGH DOSE STATIN THERAPY DAILY Atorvastatin > than or = to 40 mg Rosuvastatin > than or = to 20 mg Amlodipine + Atorvastatin > than or = to 2.5/40 mg Ezetimibe + Simvastatin 10/80 mg Simvastatin 80mg Discharge Plan Admission Admit Date/Time: 11/23/24 23:00 Primary Reason for Your Visit: right breast mass Attending Provider: Joshua Orosco Primary Care Provider: Care Physician,No Primary Consulting Providers: Mirella Quevedo Discharge Orders/Prescriptions Prescriptions: No Action NK Referrals / Follow Up: Care Physician,No Primary [Primary Care Provider] - Disposition Disposition (needs filled in before D/C Order can be placed): Acute Care Hospital Charges/Coding Visit Charges Inpatient E&M: 28548 Disch Hosp >30min
[2024-11-28 13:40] LABS: Pathologist Review Reviewed
== END 2024-11-25 20:10 | disposition short-term general hospital (02) | DRG 872 ==
LOC: ED 22:48 → MS2 23:06 → MS3 11-25 17:16
PROVIDERS: Admitting Provider Family Medicine; Emergency Provider Emergency Medicine; Visit Provider Hospitalist
DX: A41.9 Sepsis, unspecified organism (principal); D62 Acute posthemorrhagic anemia; Z66 Do not resuscitate; D63.8 Anemia in other chronic diseases classified elsewhere; E66.811 Obesity, class 1; D72.829 Elevated white blood cell count, unspecified; N61.0 Mastitis without abscess; N63.10 Unspecified lump in the right breast, unspecified quadrant; H91.90 Unspecified hearing loss, unspecified ear; Z68.34 Body mass index [BMI] 34.0-34.9, adult; Z80.3 Family history of malignant neoplasm of breast
CPT/HCPCS: 36415; 71260; 80053; 80202; 82728; 83540; 83550; 83735; 84100; 84145; 85025; 85027; 86850; 86900; 86901; 87631; 99284; P9016; Q9967; A4216